=== PATIENT | female | born 1955 | race Caucasian/White ===

== ENCOUNTER → 2018-08-10 12:16 | Outpatient (CLI) | payer OTHER, SELFPAY ==
--- NOTE | 2018-08-10 | DI.MG.S_ITS ---
BILATERAL DIGITAL SCREENING MAMMOGRAM 3D/2D WITH CAD: 08/10/2018 CLINICAL: Routine screening. Comparison is made to exams dated: 12/13/2016 mammogram, 07/07/2012 mammogram, and 03/11/2011 mammogram - [facility]. There are scattered fibroglandular elements in both breasts. Current study was also evaluated with a Computer Aided Detection (CAD) system. No significant masses, calcifications, or other findings are seen in either breast. There has been no significant interval change. IMPRESSION: NEGATIVE There is no mammographic evidence of malignancy. A 1 year screening mammogram is recommended. This exam was interpreted at Station ID: [id number]. NOTE: For mammograms, a report in lay terms will be sent to the patient. Approximately 15% of breast malignancies will not be visualized mammographically. In the management of a palpable breast mass, a negative mammogram must not discourage biopsy of a clinically suspicious lesion. Electronically Signed By: Gabriel diaz/richar:08/10/2018 13:03:22 letter sent: Normal Exam ACR BI-RADS Category 1: Negative 3341F
== END ==
PROVIDERS: Family Provider Family Medicine; PCP Family Medicine; Visit Provider Family Medicine
DX: Z12.31 Encounter for screening mammogram for malignant neoplasm of breast (principal)
CPT/HCPCS: 77063; 77067

== ENCOUNTER → 2020-12-23 09:46 | Outpatient (CLI) | payer OTHER, SELFPAY ==
--- NOTE | 2020-12-23 09:47 | DI.MG.S_ITS ---
BILATERAL DIGITAL SCREENING MAMMOGRAM 3D/2D WITH CAD: 12/23/2020 CLINICAL: Routine screening. Comparison is made to exams dated: 08/10/2018 mammogram, 12/13/2016 mammogram, and 07/07/2012 mammogram - [facility]. There are scattered fibroglandular elements in both breasts. Current study was also evaluated with a Computer Aided Detection (CAD) system. No significant masses, calcifications, or other findings are seen in either breast. There has been no significant interval change. IMPRESSION: NEGATIVE There is no mammographic evidence of malignancy. A 1 year screening mammogram is recommended. This exam was interpreted at Station ID: [id number]. NOTE: For mammograms, a report in lay terms will be sent to the patient. Approximately 15% of breast malignancies will not be visualized mammographically. In the management of a palpable breast mass, a negative mammogram must not discourage biopsy of a clinically suspicious lesion. Electronically Signed By: Gabriel Tai M.D. at/richar:12/25/2020 07:33:54 letter sent: Normal Exam ACR BI-RADS Category 1: Negative 3341F
== END ==
PROVIDERS: PCP Student in an Organized Health Care Education/Training Program; Referring Provider Student in an Organized Health Care Education/Training Program; Visit Provider Student in an Organized Health Care Education/Training Program
DX: Z12.31 Encounter for screening mammogram for malignant neoplasm of breast (principal)
CPT/HCPCS: 77063; 77067

== ENCOUNTER → 2021-07-11 15:51 | Outpatient (CLI) | payer OTHER, SELFPAY ==
--- NOTE | 2021-07-11 | DI.RAD.S_ITS ---
PROCEDURE: XR HIP W PEL IF DONE LT 2V INDICATIONS: Left hip pain TECHNIQUE: AP pelvis with lateral view(s) of the left hip(s). COMPARISON: None. FINDINGS: Bones: No fractures or dislocations. Pelvic ring appears intact. No suspicious bony lesions. Mild periarticular osteophyte formation at the bilateral hip joints. Soft tissues: The visualized bowel gas pattern is normal. No suspicious soft tissue calcifications. IMPRESSION: Bilateral hip osteoarthritis. No acute fracture. No osseous lesion. If symptoms and/or clinical suspicion for pathology persist, further assessment with repeat, or advanced imaging (e.g., CT, MRI, or bone scan) may be helpful for further assessment. Dictated by: Taisha Romo M.D. on 07/11/2021 at 16:55 Approved by: Taisha Romo M.D. on 07/11/2021 at 16:57
== END ==
PROVIDERS: PCP Internal Medicine; Referring Provider Internal Medicine; Visit Provider Internal Medicine
DX: M16.0 Bilateral primary osteoarthritis of hip (principal); M25.552 Pain in left hip
CPT/HCPCS: 73502

== ENCOUNTER 2021-07-14 12:37 | Emergency (ER) | payer OTHER, SELFPAY ==
[2021-07-14 12:44] VITALS: BP 138/93; PULSE 110; RESP 20; TEMP 36.8; O2SAT 99; BMI 36.6
--- NOTE | 2021-07-14 13:01 | PC.NURSE ---
patient has a rash spread out on her left side of her left leg. The rash is red and raised with no drainage or pustules. she denies fever, SOB or any other symptoms other than pain over her rash.
[2021-07-14] MEDS: valACYclovir 500 MG TABLET 1000 MG PO ×2 (13:19→13:54)
[2021-07-14] MEDS: HYDROCODONE/ACET 5/325 TABLET 1 TAB PO (13:19)
[2021-07-14] MEDS: predniSONE 20 MG TABLET 40 MG PO (13:19)
--- NOTE | 2021-07-14 13:44 | ED_ITS ---
HPI - Extremity Problem <Johana Alonso PRESSURIZER - Last Filed: 07/14/21 14:03> General Chief complaint: Extremity Problem,Nontraumatic Stated complaint: leg pain, rash Time Seen by Provider: 07/14/21 12:48 Source: patient Mode of arrival: Ambulatory History of Present Illness HPI Narrative: 65-year-old female presents to the emergency department complaining of left hip and left upper leg pain which started 4 days ago primarily in her left hip. She reports that 2 days ago a rash started where her pain was and it has been painful and blotchy, spreading down the lateral aspect of her left upper thigh to her left knee. Her rash is unilateral, erythematous, not pruritic vesicles present. Patient does not have her shingles vaccination, she does endorse having her J & J vaccination is booster 2 weeks ago. Patient denies any shortness of breath, wheezing, respiratory changes, dizziness, chest pain, fever, nausea or vomiting, weakness, any rash on her face, or any other symptoms. Patient saw her PCP for this left leg pain 3 days ago, at that time there was no rash, an x-ray was completed without abnormal result, and she was prescribed meloxicam which she has been taking for the pain. She has a LLE DVT ultrasound scheduled in 3 days. Patient denies any lower extremity swelling, pain in her calf, or other skin changes. Patient reports that her worst symptom is her pain, and it is not pruritic, and does not cross midline. Related Data Home Medications Medication Instructions Recorded Confirmed aspirin 81 mg chewable tablet 81 mg PO QDAY #0 01/10/17 atenolol 25 mg tablet 25 mg PO BID #0 01/10/17 cholecalciferol (vitamin D3) 50 1 tab PO QDAY #0 01/10/17 mcg (2,000 unit) tablet (Vitamin D3) glucosamine sulfate 1,500 mg oral 1,500 mg PO #0 01/10/17 powder packet (Anna) metformin 500 mg tablet,extended 500 mg PO [facility] #0 01/10/17 release 24hr (Fortamet) triamterene 37.5 1 tab PO QDAY #0 01/10/17 mg-hydrochlorothiazide 25 mg tablet Previous Rx's Medication Instructions Recorded medroxyprogesterone 10 mg tablet 10 mg PO QDAY #10 tab 01/16/17 hydrocodone 5 mg-acetaminophen 325 1 tab PO Q6H PRN #14 tab 07/14/21 mg tablet prednisolone 5 mg tablet 5 mg PO DAILY #5 tab 07/14/21 valacyclovir 1 gram tablet 1,000 mg PO Q8H 7 Days #21 tab 07/14/21 Allergies Allergy/AdvReac Type Severity Reaction Status Date / Time No Known Drug Allergies Allergy Verified 07/14/21 13:17 Review of Systems <SHRAVAN Walden - Last Filed: 07/14/21 14:03> Review of Systems Narrative: General: denies fever, chills, endorses fatigue Head/Neck: denies headache, neck pain Eyes: denies visual changes, eye pain Cardio: denies chest pain, palpitations Respiratory: denies shortness of breath, cough GI: denies abdominal pain, nausea, vomiting, or diarrhea : denies dysuria, hematuria MSK: denies joint pain, muscle weakness Skin: denies itching, endorses painful red, blotchy rash on her left lower extremity Neuro: denies numbness, tingling Patient History <SHRAVAN Walden - Last Filed: 07/14/21 14:03> Social History Smoking Status: Never smoker Smoking Status: Never smoker alcohol intake frequency: a few times a month Substance Use Type: does not use Exam <SHRAVAN Walden - Last Filed: 07/14/21 14:03> Narrative Exam Narrative: Independently reviewed vitals signs and nursing notes. General: Awake, alert, nontoxic, no cardiorespiratory distress Head/Neck: Atraumatic, neck full range of motion Eyes: EOMI, conjunctiva normal Nose: nares patent, no rhinorrhea Mouth/Throat: moist mucus membranes, posterior pharynx normal, no oral lesions Cardio: Regular rate and rhythm, no peripheral edema Respiratory: respirations unlabored without wheezing, stridor, or rales. No retractions. GI: Abdomen soft, nontender MSK: Moves all extremities, neurovascularly intact Skin: Normal capillary refill, unilateral erythematous blotchy raised macules, nonpruritic, dry over again will wrap her up Neuro: Normal speech and cognition, normal gait Initial Vital Signs Initial Vital Signs: Vital Signs Temperature 98.2 F 07/14/21 12:44 Pulse Rate 110 H 07/14/21 12:44 Respiratory Rate 20 07/14/21 12:44 Blood Pressure 138/93 H 07/14/21 12:44 Pulse Oximetry 99 07/14/21 12:44 <Figueroa Myrick DO - Last Filed: 07/14/21 14:21> Initial Vital Signs Initial Vital Signs: Vital Signs Temperature 98.2 F 07/14/21 12:44 Pulse Rate 110 H 07/14/21 12:44 Respiratory Rate 20 07/14/21 12:44 Blood Pressure 138/93 H 07/14/21 12:44 Pulse Oximetry 99 07/14/21 12:44 Course <SHRAVAN Walden - Last Filed: 07/14/21 14:03> Orders Ordered: Valacyclovir HCl (Valacyclovir 500 Mg Tablet) 1,000 mg PO Q8H Stop: 07/14/21 23:59 Discontinued Medications Hydrocodone Bitart/Acetaminophen (Hydrocodone/Acet 5/325 Tablet) 1 tab PO NOW ONE Stop: 07/14/21 13:04 Last Admin: 07/14/21 13:19 Dose: 1 tab Documented by: GERTRUDIS Hydrocodone Bitart/Acetaminophen (Hydrocodone/Acet 5/325 Prepack) 1 bottle MISC SEEINSTR ONE Stop: 07/14/21 13:20 Last Admin: 07/14/21 13:54 Dose: 1 bottle Documented by: GERTRUDIS Acyclovir (Acyclovir 200 Mg Capsule) 800 mg PO NOW ONE Stop: 07/14/21 13:04 Last Admin: 07/14/21 13:31 Dose: Not Given Documented by: GERTRUDIS Prednisone (Prednisone 20 Mg Tablet) 40 mg PO NOW ONE Stop: 07/14/21 13:03 Last Admin: 07/14/21 13:19 Dose: 40 mg Documented by: GERTRUDIS Valacyclovir HCl (Valacyclovir 500 Mg Tablet) 1,000 mg PO NOW ONE Stop: 07/14/21 13:07 Last Admin: 07/14/21 13:19 Dose: 1,000 mg Documented by: GERTRUDIS Valacyclovir HCl (Valacyclovir 500 Mg Tablet) 1,000 mg PO NOW ONE Stop: 07/14/21 13:20 Last Admin: 07/14/21 13:54 Dose: 1,000 mg Documented by: GERTRUDIS Vital Signs Vital signs: Vital Signs - 8 hr 07/14/21 12:44 07/14/21 13:49 07/14/21 14:02 Temperature 98.2 F Pulse Rate 110 H 64 61 Respiratory Rate 20 16 14 Blood Pressure 138/93 H 150/65 H 140/63 Pulse Oximetry 99 97 96 <Figueroa Myrick, DO - Last Filed: 07/14/21 14:21> Orders Ordered: Valacyclovir HCl (Valacyclovir 500 Mg Tablet) 1,000 mg PO Q8H Stop: 07/14/21 23:59 Discontinued Medications Hydrocodone Bitart/Acetaminophen (Hydrocodone/Acet 5/325 Tablet) 1 tab PO NOW ONE Stop: 07/14/21 13:04 Last Admin: 07/14/21 13:19 Dose: 1 tab Documented by: GERTRUDIS Hydrocodone Bitart/Acetaminophen (Hydrocodone/Acet 5/325 Prepack) 1 bottle MISC SEEINSTR ONE Stop: 07/14/21 13:20 Last Admin: 07/14/21 13:54 Dose: 1 bottle Documented by: GERTRUDIS Acyclovir (Acyclovir 200 Mg Capsule) 800 mg PO NOW ONE Stop: 07/14/21 13:04 Last Admin: 07/14/21 13:31 Dose: Not Given Documented by: GERTRUDIS Prednisone (Prednisone 20 Mg Tablet) 40 mg PO NOW ONE Stop: 07/14/21 13:03 Last Admin: 07/14/21 13:19 Dose: 40 mg Documented by: GERTRUDIS Valacyclovir HCl (Valacyclovir 500 Mg Tablet) 1,000 mg PO NOW ONE Stop: 07/14/21 13:07 Last Admin: 07/14/21 13:19 Dose: 1,000 mg Documented by: GERTRUDIS Valacyclovir HCl (Valacyclovir 500 Mg Tablet) 1,000 mg PO NOW ONE Stop: 07/14/21 13:20 Last Admin: 07/14/21 13:54 Dose: 1,000 mg Documented by: GERTRUDIS Vital Signs Vital signs: Vital Signs - 8 hr 07/14/21 12:44 07/14/21 13:49 07/14/21 14:02 Temperature 98.2 F Pulse Rate 110 H 64 61 Respiratory Rate 20 16 14 Blood Pressure 138/93 H 150/65 H 140/63 Pulse Oximetry 99 97 96 [facility] - Extremity (Nontraumatic) <Johana Ok YousifaaronSHRAVAN - Last Filed: 07/14/21 14:03> [facility] Narrative Medical decision making narrative: 65-year-old female presents to the emergency department with a nonpruritic, unilateral, erythematous, patchy rash on her left lower extremity extending from her left hip vitals along the lateral aspect of her thigh above her left knee. Pt has no lower extremity edema, no shortness of breath, no cough, was not vaccinated for shingles, is never had a shingles outbreak before, has no signs of systemic infection from a fever the in no signs of cellulitis. Differential include post vaccination reaction, hives, cellulitis, pityriasis rosacea. Patient is appropriate and amenable to discharge home. Vital signs are stable on repeat examination is unremarkable. Patient has been informed of results. Patient has been given strict return to ER precautions for any new or worsening symptoms. Patient understands to follow up closely with outpatient providers as instructed. Patient understands plan and agrees to discharge home. All questions and concerns answered at this time. Discharge Plan Departure Patient Disposition: Home Clinical Impression: Herpes zoster Instructions: Shingles Activity Restrictions/Additional Instructions: *You have been diagnosed with shingles, also called herpes zoster. Please continue to take your meloxicam as needed for pain with food and water. Please also take the valacyclovir 100 mg every 8 hours for 7 days. If this is too expensive at the pharmacy, please call us and we will change your order. Selma Aburto please schedule a follow-up appointment with your primary care physician for follow-up. If your pain is not controlled or if you have worsening of your rash and a fever please return to the emergency department. *What to do: *Please continue to take your regular medications as directed. [x ] New medication prescriptions sent to your pharmacy: [ Michael Anders] [ ] New medication written as a paper prescription [ ] No new medications given *Please follow up with your primary care provider in 2-3 days, call for an appointment. Let them know you were seen in the Emergency Department and that we ask that you be seen in follow up. We will electronically transmit a record of today's note if your PCP is in our system *If you do not have a primary care provider please contact the [facility] Resource line at [phone]. They will ask some questions about your medical history and help get you set up with a doctor in the community. *Return to Emergency Department if you should have any new, worsening or concerning symptoms, such as [fever greater than 101F, chills, worsening pain, persistent vomiting or other bothersome symptoms] Prescriptions: New valacyclovir 1 gram tablet 1,000 mg PO Q8H 7 Days Qty: 21 0RF hydrocodone-acetaminophen 5-325 mg tablet 1 tab PO Q6H PRN (Reason: pain) Qty: 14 0RF prednisolone 5 mg tablet 5 mg PO DAILY Qty: 5 0RF No Action atenolol 25 MG tablet 25 mg PO BID Qty: 0 0RF triamterene-hydrochlorothiazid 37.5 MG/25 MG tablet 1 tab PO QDAY Qty: 0 0RF aspirin 81 MG tablet,chewable 81 mg PO QDAY Qty: 0 0RF metformin [Fortamet] 500 MG tablet extended release 24hr 500 mg PO [facility] Qty: 0 0RF cholecalciferol (vitamin D3) [Vitamin D3] 2,000 UNIT tablet 1 tab PO QDAY Qty: 0 0RF glucosamine sulfate [Anna] 1,500 MG powder in packet 1,500 mg PO Qty: 0 0RF medroxyprogesterone 10 MG tablet 10 mg PO QDAY Qty: 10 0RF Referrals: Anahi Eller ARNP [Primary Care Provider] - 3-5 days <Figueroa Myrick DO - Last Filed: 07/14/21 14:21> Cosign ED Attending Kiarraature Attestation: I was immediately available in the department for consultation. This documentation has been reviewed and I agree with assessment and plan. Supervised by Figueroa Myrick DO
[2021-07-14 13:49] VITALS: BP 150/65; PULSE 64; RESP 16; O2SAT 97
[2021-07-14] MEDS: HYDROCODONE/ACET 5/325 PREPACK 1 BOTTLE MISC (13:54)
[2021-07-14 14:02] VITALS: BP 140/63; PULSE 61; RESP 14; O2SAT 96
== END 2021-07-14 14:04 | disposition home or self-care (01) ==
PROVIDERS: Emergency Provider Nurse Practitioner Critical Care Medicine; PCP Internal Medicine
DX: B02.9 Zoster without complications (principal)
CPT/HCPCS: 99283

== ENCOUNTER → 2022-08-08 14:11 | Outpatient (CLI) | payer MEDICARE, OTHER, SELFPAY ==
--- NOTE | 2022-08-08 14:17 | DI.MG.S_ITS ---
BILATERAL DIGITAL SCREENING MAMMOGRAM 3D/2D WITH CAD: 08/08/2022 CLINICAL: Routine screening. Comparison is made to exams dated: 12/23/2020 mammogram, 08/10/2018 mammogram, 12/13/2016 mammogram, 07/07/2012 mammogram, and 03/11/2011 mammogram - [facility]. There are scattered areas of fibroglandular density in both breasts (category b / 25%-50% glandular tissue). Current study was also evaluated with a Computer Aided Detection (CAD) system. No significant masses, calcifications, or other findings are seen in either breast. There has been no significant interval change. IMPRESSION: NEGATIVE There is no mammographic evidence of malignancy. A 1 year screening mammogram is recommended. Based on the Tyrer Cuzick model (a risk assessment model) the patient's lifetime risk is 6.2% and her 10 year risk is 3.0%. According to the ACR, ACS, and NCCN guidelines, an annual breast MRI exam along with mammogram is recommended if the patient's lifetime risk is 20% or greater. This exam was interpreted at Station ID: [id number]. NOTE: For mammograms, a report in lay terms will be sent to the patient. Approximately 15% of breast malignancies will not be visualized mammographically. In the management of a palpable breast mass, a negative mammogram must not discourage biopsy of a clinically suspicious lesion. Electronically Signed By: Tye Cabrera M.D., jr/richar:08/08/2022 14:49:43 letter sent: Normal Exam ACR BI-RADS Category 1: Negative 3341F
== END ==
PROVIDERS: PCP Internal Medicine; Referring Provider Internal Medicine; Visit Provider Internal Medicine
DX: Z78.0 Asymptomatic menopausal state (principal); Z12.31 Encounter for screening mammogram for malignant neoplasm of breast; Z13.820 Encounter for screening for osteoporosis
CPT/HCPCS: 77063; 77067; 77080